=== PATIENT | male | born 1960 | race Caucasian/White ===

== ENCOUNTER → 2021-05-29 09:06 | Outpatient (CLI) | payer SELFPAY ==
[2021-05-29 10:35] LABS: Erythrocyte Sedimentation Rate 4 mm/hr (0-20)
[2021-05-29 11:09] LABS: PSA,Total - Annual Screen 0.72 ng/mL (0.00-4.00); Rheumatoid Factor < 10.0 IU/mL (<15); Uric Acid 4.5 mg/dL (3.5-7.2)
[2021-05-30 15:43] LABS: ANTINUCLEAR ANTIBODIES DIRECT Positive (Negative)
== END ==
PROVIDERS: PCP Family Medicine; Visit Provider Family Medicine
DX: M25.50 Pain in unspecified joint (principal); Z12.5 Encounter for screening for malignant neoplasm of prostate
CPT/HCPCS: 36415; 84153; 84550; 85652; 86038; 86431; G0103

== ENCOUNTER → 2025-04-11 | Outpatient (CLI) | payer SELFPAY ==
--- NOTE | 2025-04-11 12:43 | STEWCON_ITS ---
Reason For Study Reason For Study: Chest Pain Stress Results Protocol: Stress Echocardiogram Glynn Protocol with Definity Maximum Predicted HR: 154 bpm Target HR: 131 bpm % Maximum Predicted HR: 84 % DurationHeart Rate Stage (mm:ss) (bpm) BP Comment Baseline 67 137/89Patient denies chest pain Stage 1 3:00 101 132/80Mild dyspnea. Patient denies chest pain. Stage 2 3:00 105 140/82Mild dyspnea. Patient denies chest pain Stage 3 3:00 113 150/88Mild dyspnea. Denies chest pain stage 4 1:31 129 144/90Moderate dyspnea. Denies chest pain Recovery 85 140/78Patient denies chest pain or dyspnea. Stress Duration: 10:31 mm:ss Maximum Stress HR: 129 bpm Baseline Echocardiogram Findings Stress Echo Wall motion Data Resting WM Intermediate WM Stress WM ECHO/Stress Test Echo W/Contrast Interpretation Summary Exercise stress echo. 64-year-old man with a history of chest pain. Resting EKG demonstrates sinus rhythm with a rate of 67 bpm normal intervals ar e noted resting blood pressure is 137/89 mmHg. The patient exercised according to regular Glynn protocol for total durat ion of 10 minutes and 30 seconds. The maximal heart rate attained 142 bpm which was 92% of max impacted heart rate th e maximum workload was 13.7 metabolic equivalents. At rest there were no ST or T wave changes noted suggest ischemia and at peak exercise upsloping ST changes were noted we did not meet the criteria for ischemia. No clinical angina was no kaylyn the test was terminated due to moderate dyspnea no chest pain was present. Stress echocardiogram. Resting echocardiogram was performed with Definity enhan cement. The resting ejection fraction was noted to be 55%. At peak exercise there was thickening of all [place] reduction o f low ventricular cavity size peaking of ejection fraction at 65 to 70%. No new wall motion abnormalities were present. Conclusion: Exercise stress echocardiogram with no EKG or echocardiographic criteria for is chemia at a high workload. Ordering Physician: Jimmy Steele Referring Physician: Jimmy Steele Performed By: Leti Rushing, JERI
== END | disposition home or self-care (01) ==
PROVIDERS: PCP Family Medicine; Referring Provider Internal Medicine Cardiovascular Disease; Visit Provider Internal Medicine Cardiovascular Disease
DX: R07.9 Chest pain, unspecified (principal)
CPT/HCPCS: 93017; 93350; Q9957; A4216; C8928